=== PATIENT | female | born 1975 | race Native Hawaiian/Other Pacific Islander ===

== ENCOUNTER 2017-11-18 08:52 | Day surgery (SDC) | payer OTHER ==
[2017-11-12 09:15] VITALS: BMI 23.3
[2017-11-18] MEDS ORDERED: Propofol 10 mg/ml Inj (20 ML) ONE ×2 (09:28→10:23)
[2017-11-18] MEDS ORDERED: Sodium Chloride 0.9% 1,000 ML IV SCH (10:30)
[2017-11-18 11:30] VITALS: BP 105/68; RESP 16; TEMP 97.5; O2SAT 99
[2017-11-18 11:31] VITALS: PULSE 63
== END 2017-11-18 12:14 | disposition home or self-care (01) ==
LOC: ENDO 08:52
PROVIDERS: ATTEND Internal Medicine Gastroenterology
DX: K29.70 Gastritis, unspecified, without bleeding (principal); K63.3 Ulcer of intestine; K44.9 Diaphragmatic hernia without obstruction or gangrene; K21.0 Gastro-esophageal reflux disease with esophagitis; K31.7 Polyp of stomach and duodenum